=== PATIENT | female | born 1995 | race Caucasian/White ===

== ENCOUNTER → 2022-10-26 | Outpatient (CLI) | payer MEDICAID ==
[~2022-10-26] MED LIST: ACHD5005 PO; ACHYD1T PO; CEPH-507 PO; DCS100C PO; DEPO INJ; DOCU100C37 PO; FAMO-119 PO; FERR27TA; FLUC100T10 PO; IBP600T1 PO; IBP800T PO; IBUP-1780 PO; METR-145 PO; NITR100C44 PO; NORG1TAB14 PO; ONDA-43 PO; OXYC-556 PO; OXYC1TAB87 PO; PHEN200T27 PO; PRED20TA PO; PREN-53 PO; PREN1TAB39
--- NOTE | 2022-10-26 19:25 | Diagnostic Imaging Report ---
INDICATION: patient, survey. TECHNIQUE: Multiple real-time grayscale images were obtained over the gravid uterus. COMPARISON: None FINDINGS: A single live intrauterine fetus is seen measuring 21 weeks 1 day in size with sonographic EDC of 03/07/2023. The fetus is in cephalic presentation at this time. Amniotic fluid is normal with index of 14.2 cm. Placenta is posterior with no evidence of previa. heart rate is 140 bpm. Distance from the placental tip to the internal cervical os was 4.5 cm. Cervical length was also 4.5 cm. Maternal adnexa were not well seen but showed no free fluid. survey showed normal-appearing kidneys and bladder. stomach appeared normal. Intracranial ventricles appeared normal. Four-chamber heart view appeared normal. Three-vessel cord and cord insertion appeared normal. Views of the spine were unremarkable. Biometrical measurements are as follows: Biparietal 5.11 cm, age 21 weeks 4 days. Head circumference 18.78 cm, age 21 weeks 1 days. Abdominal circumference 15.77 cm, age 21 weeks 0 days. Femur length 3.35 cm, age 20 weeks 4 days. Sonographic estimate age: 21 weeks 1 days. Sonographic estimated date of delivery: 03/07/2023. Estimated Weight: 377 gm (+/- 55 gm). LMP percentile: 81%. heart rate: 140 beats per minute. number: 1 of 1. IMPRESSION: Single live intrauterine fetus measuring 21 weeks 1 day in size, with no sonographically detectable abnormality. survey was unremarkable. Dictated by: Dictated on workstation # [id number]
== END ==
LOC: RAD 15:00
PROVIDERS: ATTEND Obstetrics & Gynecology
DX: Z34.82 Encounter for supervision of other normal pregnancy, second trimester (principal); Z3A.21 21 weeks gestation of pregnancy
CPT/HCPCS: 76805

== ENCOUNTER 2022-10-28 08:56 | Outpatient (CLI) | payer MEDICAID ==
[~2022-10-28] VITALS: Ht 162.6 cm; Wt 60.0 kg
[2022-10-28 09:16] LABS: BILIRUBIN,URINE NEGATIVE (NEGATIVE); CLARITY,URINE SL CLOUDY; COLOR,URINE YELLOW; GLUCOSE, URINE (UA) NEGATIVE (NEGATIVE); KETONES,URINE NEGATIVE (NEGATIVE); LEUKOCYTE ESTERASE ,URINE 1+ (NEGATIVE); NITRITE,URINE NEGATIVE (NEGATIVE); PH,URINE 6.5 (5-9); PROTEIN,URINE NEGATIVE (NEGATIVE)
[2022-10-28 09:22] VITALS: BP 104/59
[2022-10-28 09:25] LABS: BACTERIA,URINE FEW /HPF; RBC,URINE RARE /HPF; WBC,URINE 0-2 /HPF
--- NOTE | 2022-10-28 10:50 | Diagnostic Imaging Report ---
INDICATION: Vaginal bleeding. There is a single live fetus in a cephalic presentation. heart rate is recorded at 146 bpm. Placenta is posterior. No previa is identified. Amniotic fluid index is 12.9 cm. IMPRESSION: Unremarkable limited ultrasound. Dictated by: Dictated on workstation # [id number]
--- NOTE | 2022-10-29 08:12 | Physician Query-Final Dx ---
TAJ,10/29/22 0812: Clinic Account Progress/Dx Physician Query: Please give diagnosis Please include # weeks gestation Date of Service Oct 28, 2022 at 08:56 RIA CAMEJO DO 10/29/22 1022: Clinic Account Progress/Dx DIAGNOSIS: Diagnosis 22 week IUP Vaginal bleeding TAJ,JulOct 29, 2022 08:12 RIA CAMEJO DO Oct 29, 2022 10:22
== END 2022-10-28 11:45 | disposition home or self-care (01) ==
LOC: LDRP 08:56 → WSo 08:56
PROVIDERS: ATTEND Obstetrics & Gynecology
DX: O46.92 Antepartum hemorrhage, unspecified, second trimester (principal); Z3A.22 22 weeks gestation of pregnancy
CPT/HCPCS: 76815; 81000; 87088

== ENCOUNTER 2022-11-13 17:34 | Outpatient (CLI) | payer MEDICAID ==
[~2022-11-13] VITALS: Ht 162.6 cm; Wt 61.5 kg
[2022-11-13 17:55] VITALS: BP 101/69
[2022-11-13 18:09] LABS: BILIRUBIN,URINE NEGATIVE (NEGATIVE); CLARITY,URINE CLOUDY; COLOR,URINE YELLOW; GLUCOSE, URINE (UA) NEGATIVE (NEGATIVE); KETONES,URINE NEGATIVE (NEGATIVE); LEUKOCYTE ESTERASE ,URINE NEGATIVE (NEGATIVE); NITRITE,URINE NEGATIVE (NEGATIVE); PH,URINE 7.5 (5-9); PROTEIN,URINE TRACE (NEGATIVE)
[2022-11-13 18:21] VITALS: BP 101/69
[2022-11-13 18:21] LABS: AMORPHOUS SEDIMENT,UR MOD AMOR PHOSPHATE /LPF; BACTERIA,URINE FEW /HPF
--- NOTE | 2022-11-13 20:07 | OB Triage Report ---
Standard Progress Note Progress Notes/Assess & Plan Date Seen by a Provider: Nov 13, 2022 Time Seen by a Provider: 19:30 Expected Date of Delivery: Mar 14, 2023 Gestational Age in Weeks: 22 Gestational Age in Days: 5 LMP/JAMESON Comment: 22w5d Progress/Assessment & Plan HPI: Patient presents as at 22w5d GA due to leakage of fluid. Reports that for about 3 days she's had leakage of fluid that comes in gushes, no foul odor or irritation associated. She also reports that for several weeks she has had 1-3x/wk frequency of moderate vaginal bleeding, although more recently the last episode was about 1 week ago. Denies abdominal pain or contractions, and reports good FM See flowsheet for vitals On exam patient is well-appearing and in no distress Abd: non-tender, non-distended; gravid Per nursing report exam notable for negative nitrazine test BSUS notable for HARVEY 9 FHT notable for two spontaneous decelerations in an otherwise [id number] tracing with moderate variability. A/P: at 22w5d GA with leakage of fluid; clinical exam is reassuring against PPROM with negative nitrazine and normal HARVEY; however, return precautions were still emphasized, especially that if she develops fever or with the next recurrence of the bleeding episodes that she was describing to me, she should return to the hospital. See above regarding FHT; for GA would consider reassuring, and considering previable GA again emphasized return precautions Chanelle Alexander Final Diagnosis Leakage of fluid; possible UTI Diagnosis/Problems Diagnosis/Problems (1) Urinary incontinence CHANELLE ALEXANDER MD Nov 13, 2022 20:07
== END 2022-11-13 20:20 | disposition home or self-care (01) ==
LOC: WSo 17:34 → LDRP 17:34 → WSo 20:20
PROVIDERS: ATTEND Student in an Organized Health Care Education/Training Program
DX: O42.912 Preterm premature rupture of membranes, unspecified as to length of time between rupture and onset of labor, second trimester (principal); N39.498 Other specified urinary incontinence; Z3A.22 22 weeks gestation of pregnancy
CPT/HCPCS: 81000

== ENCOUNTER 2022-12-05 05:20 | Outpatient (CLI) | payer SELFPAY ==
[~2022-12-05] VITALS: Ht 162.6 cm; Wt 63.3 kg
[2022-12-05] MEDS ORDERED: PNV1TABL9 PO (05:34)
[2022-12-05 05:40] VITALS: BP 136/85
[2022-12-05 05:51] LABS: BILIRUBIN,URINE NEGATIVE (NEGATIVE); CLARITY,URINE CLEAR; COLOR,URINE YELLOW; GLUCOSE, URINE (UA) NEGATIVE (NEGATIVE); KETONES,URINE NEGATIVE (NEGATIVE); LEUKOCYTE ESTERASE ,URINE NEGATIVE (NEGATIVE); NITRITE,URINE NEGATIVE (NEGATIVE); PH,URINE 6.5 (5-9); PROTEIN,URINE NEGATIVE (NEGATIVE)
[2022-12-05 06:04] LABS: BACTERIA,URINE FEW /HPF; RBC,URINE 25-50 /HPF; SQUAMOUS EPITHELIAL CELL,UR 25-50 /HPF; WBC,URINE 0-2 /HPF
[2022-12-05 06:10] VITALS: BP 107/64
[2022-12-05 06:51] LABS: BILIRUBIN,URINE NEGATIVE (NEGATIVE); CLARITY,URINE CLEAR; COLOR,URINE YELLOW; GLUCOSE, URINE (UA) NEGATIVE (NEGATIVE); KETONES,URINE NEGATIVE (NEGATIVE); LEUKOCYTE ESTERASE ,URINE NEGATIVE (NEGATIVE); NITRITE,URINE NEGATIVE (NEGATIVE); PROTEIN,URINE NEGATIVE (NEGATIVE)
[2022-12-05 07:13] LABS: BACTERIA,URINE NEGATIVE /HPF; SQUAMOUS EPITHELIAL CELL,UR 0-2 /HPF
[2022-12-05 07:40] VITALS: BP 110/63
--- NOTE | 2022-12-05 12:32 | OB Triage Report ---
Standard Progress Note Progress Notes/Assess & Plan Date Seen by a Provider: December 05, 2022 Time Seen by a Provider: 09:00 Expected Date of Delivery: Mar 14, 2023 Gestational Age in Weeks: 25 Gestational Age in Days: 6 LMP/JAMESON Comment: JAMESON 03/14/2023 Progress/Assessment & Plan S: Pt is a 27 yo with intrauterine at 25w6d (LMP/7wk US), who presents to triage for vaginal bleeding this morning while at work. She reports feeling like she was leaking into her underwear, and went to the bathroom, where she noted bloody fluid in the toilet that turned the toilet bowl a clear red color (pt showed picture she took of this). Per RN report, pt had bloody fluid in toilet here on arrival to triage. 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 She mostly sits down at work, and does not perform strenuous activities. She denies any associated abdominal pain/cramping, abnormal vaginal discharge, dysuria, hematuria. She has been evaluated for this problem several time this since about 12 weeks gestational age, and work-up have been negative. She also notes various episodes of leaking clear fluid throughout this , and her evaluations have been negative for ruptured membranes, and HARVEY have been normal. Her bleeding and leaking of fluid episodes have not been particularly associated with activities including intercourse. She denies any illnesses including fevers, chills, nausea, vomiting. She denies CP, SOB, palpitations, headaches, vision abnormalities. She was last sexually active about 3 days ago. Pt's PNC has been with [facility]. [facility], and her otherwise complicated by tobacco use and hx of LEEP x2. O: Vital Signs 12/05/22 12/05/22 05:40 07:40 Temp 36.0 Pulse 75 Resp 18 B/P (MAP) 110/63 (79) Pulse Ox 100 O2 Delivery Room Air Gen: in no apparent distress Lungs: non-labored respirations, symmetric chest rise Heart: normal rate and peripheral perfusion Abd: gravid uterus, soft, NTTP Ext: no edema or erythema EFM: 135 bpm, no decelerations TOCO: no contractions cervix: closed on digital exam Pelvic: normal appearance of external genitalia and vagina. There was no pooling of fluid in the vagina. Scant light pink discharge noted in vagina without bright red blood or any active bleeding noted. Cervix with multiparous appearance, with irregular appearing os as in a healed post-surgical appearance. No evidence of blood at the cervical os. There was no leaking of fluid from the cervix with patient cough/vasalva. Laboratory Tests Test 12/05/22 05:40 12/05/22 06:40 12/05/22 09:30 Range/Units Urine Color YELLOW YELLOW Urine Clarity CLEAR CLEAR Urine pH 6.5 6.0 5-9 Urine Specific [place] 1.025 H 1.015 L 1.016-1.022 Urine Protein NEGATIVE NEGATIVE NEGATIVE Urine Glucose (UA) NEGATIVE NEGATIVE NEGATIVE Urine Ketones NEGATIVE NEGATIVE NEGATIVE Urine Nitrite NEGATIVE NEGATIVE NEGATIVE Urine Bilirubin NEGATIVE NEGATIVE NEGATIVE Urine Urobilinogen 0.2 0.2 < = 1.0 MG/DL Urine Leukocyte Esterase NEGATIVE NEGATIVE NEGATIVE Urine RBC (Auto) 3+ H 2+ H NEGATIVE Urine RBC 25-50 H NONE /HPF Urine WBC 0-2 NONE /HPF Urine Squamous Epithelial Cells 25-50 H 0-2 /HPF Urine Crystals NONE NONE /LPF Urine Bacteria FEW H NEGATIVE /HPF Urine Casts NONE NONE /LPF Urine Mucus SMALL H NEGATIVE /LPF Urine Culture Indicated NO NO Membranes Rupture POSITIVE A/P: IUP at 25w6d (LMP/7wk US) with vaginal bleeding, and now concern for rupture of membranes. Maternal and evaluation were unremarkable. FHT is appropriate for gestational age. 1) Exam as noted above without active bleeding or pooling of fluid in the vagina. 2) ROM Plus resulted as positive after patient discharge from triage (pt desired triage with pending results and plans for f/u). However, sample was contaminated with a small amount of bloody discharge 3) Patient was called with ROM plus result, and instructed to return to triage for further evaluation for rupture of membranes Stephanie Harp MD Final Diagnosis Intrauterine at 25w6d Vaginal bleeding in second trimester STEPHANIE HARP MD December 05, 2022 12:32
== END 2022-12-05 09:45 | disposition home or self-care (01) ==
LOC: WSo 05:20 → LDRP 05:23 → WSo 09:45
PROVIDERS: ATTEND Obstetrics & Gynecology
DX: O46.92 Antepartum hemorrhage, unspecified, second trimester (principal); Z3A.25 25 weeks gestation of pregnancy
CPT/HCPCS: 36415; 81000; 84112; 87210; 87491; 87591

== ENCOUNTER 2022-12-05 11:20 | Outpatient (CLI) | payer SELFPAY ==
[~2022-12-05 11:20] MED LIST changes: +PNV1TABL9 PO
--- NOTE | 2022-12-05 13:08 | OB Triage Report ---
Standard Progress Note Progress Notes/Assess & Plan Date Seen by a Provider: December 05, 2022 Time Seen by a Provider: 12:30 Expected Date of Delivery: Mar 14, 2023 Gestational Age in Weeks: 25 Gestational Age in Days: 6 LMP/JAMESON Comment: JAMESON 12/12/22 (dated by LMP, which is consistent with 7 weeks ultrasound) Progress/Assessment & Plan Patient presented back to triage to r/o rupture of membraned due to previous positive ROM plus with her visit earlier this morning. She is starting to feel some leaking into her underwear again, on arrival to triage. Patient has no new concerns. She is feeling usual movements. She denies any abdominal pain, contractions, or recent illnesses. Pelvic exam: ~ 10 mL of thin pink fluid was noted pooling in the vagina. cervix is visually closed. There is no evidence of bleeding from cervix or vagina. No fluid leaking from cervix with cough. Cervical mucous noted. Dry Prep obtained and reviewed in lab with oil bay technician: negative for ferning Nitrazine: negative from earlier visit Ultrasound (prelim report): HARVEY is 6.5, cervix is 4 to 5cm length, placenta is posterior without evidence of previa or low lying placenta Assessment/Plan: IUP at 25w6d with exam concerning for pre-labor rupture of membranes. - Transfer to [facility] for higher level of care for pre-labor rupture of membranes - Pt discussed with Dr. Yang, and transfer was accepted - Pt plans to go with private vehicle. Risks of self transport discussed with patient including labor, vaginal bleeding, maternal/ . Pt verbalized understanding, and continues to desire to proceed in private vehicle Final Diagnosis Intrauterine at 25w6d Prelabor rupture of membranes STEPHANIE HARP MD December 05, 2022 13:08
--- NOTE | 2022-12-05 13:36 | Diagnostic Imaging Report ---
US LIMITED [id number] INDICATION: OLIGO. COMPARISON: None. TECHNIQUE: Obstetrical ultrasound examination was performed. FINDINGS: There is a single intrauterine gestation in cephalic presentation. There is realtime ultrasound positive cardiac activity with heart rate of 129 bpm. The placenta is located posterior. There is no evidence of placenta previa. Cervical length is 5.1 cm. Amniotic fluid index 6.6 cm. IMPRESSION: Single living intrauterine gestation in cephalic presentation. Amniotic fluid index 6.6 cm. Dictated by: Dictated on workstation # [id number]
[2022-12-05 13:50] VITALS: BP 115/57
[2022-12-05 14:29] VITALS: BP 115/57
== END 2022-12-05 14:44 ==
LOC: LDRP 11:20 → WSo 11:20
PROVIDERS: ATTEND Obstetrics & Gynecology
DX: O42.912 Preterm premature rupture of membranes, unspecified as to length of time between rupture and onset of labor, second trimester (principal); Z3A.25 25 weeks gestation of pregnancy
CPT/HCPCS: 76815; Q0114; 36415; 89060